=== PATIENT | male | born 1960 | race African-American/Black ===

== ENCOUNTER 2018-11-16 09:42 | Emergency (ER) | payer OTHER ==
[~2018-11-16] VITALS: Ht 182.9 cm; Wt 64.4 kg
[~2018-11-16 09:42] MED LIST: BACTRIM DS TAB1 EACH PO; CIPRO500 MG PO; LACTULOSE20 GM/30 M PO; MIDODRINE HCL2.5 MG PO; OMEPRAZOLE40 MG PO; PENTOXIFYLLINE400 MG PO; SPIRONOLACTONE25 MG PO; SUCRALFATE1 G/10 ML PO; ULTRAM50 MG PO; ZINC SULFATE220 M1 PO
== END 2018-11-16 10:10 | disposition left against medical advice (07) ==
LOC: ER 09:42
DX: R13.10 Dysphagia, unspecified (principal)